=== PATIENT | male | born 1960 | race Caucasian/White ===

== ENCOUNTER 2016-12-07 09:02 | Inpatient (IN) | payer OTHER ==
[~2016-12-07] VITALS: Ht 188 cm; Wt 81.8 kg
[~2016-12-07 09:02] MED LIST: ABILIFY20 MG PO; ALBUTEROL17 GM IH; APRESOLINE50 M1 PO; CYMBALTA30 MG PO; EFFEXOR XR150 MG PO; EFFEXOR100 MG PO; HYDROXYZINE HCL25 MG PO; LISINOPRIL PO; LOPRESSOR50 MG PO; METOPROLOL PO; MIRALAX17 GM PO; MOTRIN600 MG PO; NORCO 5/3251 TABLET PO; OMEPRAZOLE40 MG PO; SIMVASTATIN PO; TOPROL XL50 MG PO; ZESTRIL,PRINIVI10 MG PO; ZOCOR80 MG PO
[2016-12-07 09:33] LABS: EOSINOPHIL (%) 0.6 % (0-5); EOSINOPHIL COUNT 0.1 K/uL (0-0.3); HEMATOCRIT 42.1 % (38.0-50.0); LYMPHOCYTE COUNT 0.9 K/uL (1.0-2.8); MCH 31.9 PG (29.0-34.0); MCHC 33.5 G/DL (30.0-36.0); MCV 95.2 FL (86-99); MEAN PLAT.VOLUME 9.9 uM^3 (9.0-12.4); MONOCYTE (%) 8.5 % (3-12); MONOCYTE COUNT 0.7 K/uL (0-0.8); NEUTROPHIL (%) 79.7 % (45-76); NEUTROPHIL COUNT 6.5 K/uL (1.8-6.4); PLATELET COUNT 183 K/uL (156-360); RBC DIS.WIDTH-CV 12.8 % (11.8-14.6); RBC DIS.WIDTH-SD 43.1 % (39-53); RED BLOOD COUNT 4.42 M/uL (4.00-5.50); WHITE BLOOD COUNT 8.2 K/uL (4.1-10.2)
[2016-12-07 09:44] LABS: CHLORIDE 108 mEq/L (99-109); INTER. NORMALIZED RATIO 1.1; POTASSIUM 4.6 mEq/L (3.7-5.4); PROTHROMBIN TIME 10.7 (9.2-11.2); PTT 26.2 (25-32); SODIUM 141 mEq/L (136-147)
[2016-12-07 09:45] LABS: GLUCOSE 114 mg/dL (70-99)
[2016-12-07 09:47] LABS: ANION GAP 9 MEQ/L (2-14)
[2016-12-07 09:49] LABS: GFR ESTIMATE (CALCULATED) > 59 mL/min/
[2016-12-07 09:50] LABS: UREA NITROGEN (BUN) 28 mg/dL (9-23)
[2016-12-07 09:54] LABS: TROP-I INTERPRETATION NEGATIVE; TROPONIN-I < 0.01 ng/mL (0.0-0.30)
[2016-12-07] MEDS ORDERED: ADVIL,NUPRIN,M200 MG PO (11:02)
[2016-12-07] MEDS ORDERED: MULTI-VITAMIN1 EAC4 PO (11:03)
[2016-12-07 12:58] LABS: MAGNESIUM 1.8 mg/dL (1.3-2.7)
[2016-12-07 13:20] LABS: HDL CHOLESTEROL 49 MG/DL (Desirable>=40); LDL CHOLESTEROL 97 mg/dL (Desirable<100); NON-HDL CHOLESTEROL 113 mg/dL (Desirable<160); TOTAL CHOLESTEROL 162 mg/dL (Desirable<200); TRIGLYCERIDES 80 MG/DL (Normal: <150)
[2016-12-07 15:19] VITALS: BP 120/84
[2016-12-07 19:06] LABS: TROP-I INTERPRETATION NEGATIVE; TROPONIN-I < 0.01 ng/mL (0.0-0.30)
[2016-12-07 19:20] VITALS: BP 128/79
[2016-12-08 00:24] VITALS: BP 129/76
[2016-12-08 04:10] VITALS: BP 141/94
[2016-12-08 07:23] VITALS: BP 128/88
[2016-12-08 11:49] VITALS: BP 125/88
[2016-12-08 15:18] VITALS: BP 143/79
[2016-12-08 20:34] VITALS: BP 124/85
[2016-12-09 00:45] VITALS: BP 126/76
[2016-12-09 04:47] VITALS: BP 120/79
[2016-12-09 06:44] LABS: EOSINOPHIL (%) 1.9 % (0-5); EOSINOPHIL COUNT 0.1 K/uL (0-0.3); HEMATOCRIT 40.3 % (38.0-50.0); IMMATURE GRANULOCYTE (%) 0.2 % (0.0-0.7); LYMPHOCYTE COUNT 1.3 K/uL (1.0-2.8); MCH 32.3 PG (29.0-34.0); MCHC 33.7 G/DL (30.0-36.0); MCV 95.7 FL (86-99); MEAN PLAT.VOLUME 10.4 uM^3 (9.0-12.4); MONOCYTE (%) 9.2 % (3-12); MONOCYTE COUNT 0.5 K/uL (0-0.8); NEUTROPHIL (%) 65.7 % (45-76); NEUTROPHIL COUNT 3.8 K/uL (1.8-6.4); PLATELET COUNT 218 K/uL (156-360); RED BLOOD COUNT 4.21 M/uL (4.00-5.50); WHITE BLOOD COUNT 5.8 K/uL (4.1-10.2)
[2016-12-09 07:55] VITALS: BP 138/86
[2016-12-09 09:08] LABS: ANION GAP 8 MEQ/L (2-14); CHLORIDE 105 MEQ/L (99-109); GFR ESTIMATE (CALCULATED) > 59 mL/min/; MAGNESIUM 1.9 mg/dl (1.3-2.7); POTASSIUM 4.6 MEQ/L (3.7-5.4); SAMPLE HEMOLYSIS CHECK 0; SAMPLE ICTERIC CHECK 0; SAMPLE LIPEMIA CHECK 0; SODIUM 142 MEQ/L (136-147); UREA NITROGEN (BUN) 17 mg/dL (9-23)
[2016-12-09 09:10] LABS: GLUCOSE 80 mg/dL (70-99)
[2016-12-09] MEDS ORDERED: CARDIZEM CD,CA240 MG PO (10:25)
[2016-12-09] MEDS ORDERED: ASPIR-LOW81 MG PO (10:25)
[2016-12-09] MEDS ORDERED: VENTOLIN HFA18 GM IH (10:25)
[2016-12-09] MEDS ORDERED: ARNUITY ELLIP100 MCG IH (10:25)
[2016-12-09 11:02] VITALS: BP 113/88
[2016-12-09] MEDS ORDERED: LISINOPRIL2.5 MG PO (12:04)
== END 2016-12-09 13:43 | disposition home or self-care (01) | DRG 308 ==
LOC: EME 09:02 → 4EAST 11:07 → EDOF 11:07 → 4EAST 14:51
PROVIDERS: Emergency Medicine; Internal Medicine
DX: I48.1 Persistent atrial fibrillation (principal); I50.21 Acute systolic (congestive) heart failure; R65.10 Systemic inflammatory response syndrome (SIRS) of non-infectious origin without acute organ dysfunction; J44.9 Chronic obstructive pulmonary disease, unspecified; F17.200 Nicotine dependence, unspecified, uncomplicated; E78.5 Hyperlipidemia, unspecified; I10 Essential (primary) hypertension; F17.210 Nicotine dependence, cigarettes, uncomplicated; K21.9 Gastro-esophageal reflux disease without esophagitis; F41.9 Anxiety disorder, unspecified; Z59.0 Homelessness
CPT/HCPCS: 71010; 80048; 80061; 83735; 83880; 84100; 84443; 84484; 85025; 85610; 85730; 93005; 93306; 94640; 94640 76; 99202; 99281; 99285; J1650